=== PATIENT | male | born 1960 | race Caucasian/White ===

== ENCOUNTER 2016-03-19 09:48 | Outpatient (CLI) ==
[2013-12-02 00:55] VITALS: BMI 40.8
[2016-03-19 12:37] LABS: BASOPHILS # (AUTO) 0.1 K/uL (0-0.2); EOSINOPHILS # (AUTO) 0.2 K/ul (0.0-0.7); EOSINOPHILS % (AUTO) 3.1 % (0.0-7.0); HEMATOCRIT 49.6 % (42.0-52.0); HEMOGLOBIN 16.4 g/dl (14.0-18.0); IMMATURE GRANULOCYTE % (AUTO) 0.3 % (0.0-5.0); LYMPHOCYTES % (AUTO) 15.8 (10.0-50.0); MEAN CORPUSCULAR HEMOGLOBIN 30.8 pg (27.0-31.0); MEAN CORPUSCULAR HGB CONC 33.1 (31.8-35.4); MEAN CORPUSCULAR VOLUME 93.1 fl (80.0-94.0); MONOCYTES # (AUTO) 0.7 K/uL (0.4-2.0); MONOCYTES % (AUTO) 11.6 (0-10); NEUTROPHILS # (AUTO) 4.2 K/ul (2.0-6.9); NEUTROPHILS % (AUTO) 68.2; PLATELET COUNT 164 10^3/uL (140-440); RED BLOOD COUNT 5.33 10^6/ul (4.70-6.10); WHITE BLOOD COUNT 6.12 K/ul (4.2-10.2)
[2016-03-19 12:55] LABS: ALBUMIN 3.7 g/dL (3.4-5.0); ANION GAP 11.4; BUN/CREATININE RATIO 11.23; CALCIUM 9.2 mg/dL (8.2-10.2); CREATININE 0.89 mg/dL (0.60-1.10); PHOSPHORUS 2.4 mg/dL (2.5-4.9); POTASSIUM 4.4 mmol/L (3.5-5.1)
== END 2016-03-19 09:49 | disposition home or self-care (01) ==
LOC: LAB 09:48
PROVIDERS: ATTEND General Practice
DX: E88.81 Metabolic syndrome and other insulin resistance (principal); I10 Essential (primary) hypertension; R73.09 Other abnormal glucose; Z68.41 Body mass index [BMI] 40.0-44.9, adult
CPT/HCPCS: 36415; 80069; 83036; 83525; 85025

== ENCOUNTER 2016-08-01 10:02 | Outpatient (CLI) ==
[2013-12-02 00:55] VITALS: BMI 40.8
[2016-08-01 13:10] LABS: BILIRUBIN,URINE Negative (NEGATIVE); KETONES,URINE Negative (NEGATIVE); LEUKOCYTE ESTERASE ,URINE Negative (NEGATIVE); NITRITE,URINE Negative (NEGATIVE); PROTEIN,URINE Negative (NEGATIVE); URINE, BLOOD Negative (NEGATIVE)
[2016-08-01 13:12] LABS: BASOPHILS # (AUTO) 0.1 K/uL (0-0.2); BASOPHILS % (AUTO) 1.2 % (0.0-3.0); EOSINOPHILS # (AUTO) 0.2 K/ul (0.0-0.7); HEMATOCRIT 47.9 % (42.0-52.0); HEMOGLOBIN 16.3 g/dl (14.0-18.0); IMMATURE GRANULOCYTE % (AUTO) 0.2 % (0.0-5.0); LYMPHOCYTES # (AUTO) 1.6 K/uL (0.60-3.4); MEAN CORPUSCULAR HEMOGLOBIN 31.3 pg (27.0-31.0); MEAN CORPUSCULAR VOLUME 91.9 fl (80.0-94.0); MONOCYTES # (AUTO) 0.7 K/uL (0.4-2.0); MONOCYTES % (AUTO) 11.3 (0-10); NEUTROPHILS # (AUTO) 3.2 K/ul (2.0-6.9); NEUTROPHILS % (AUTO) 56.3; PLATELET COUNT 148 10^3/uL (140-440); RED BLOOD COUNT 5.21 10^6/ul (4.70-6.10); WHITE BLOOD COUNT 5.75 K/ul (4.2-10.2)
[2016-08-01 13:16] LABS: ADD URINE MICROSCOPIC NO
[2016-08-01 13:46] LABS: ALBUMIN 3.7 g/dL (3.4-5.0); ALBUMIN/GLOBULIN RATIO 1.16; ANION GAP 12.3; BILIRUBIN,TOTAL 0.81 mg/dL (0.00-1.20); BUN/CREATININE RATIO 11.49; CALCIUM 9.3 mg/dL (8.2-10.2); CHOL/HDL RATIO 4.4 (4.5-6.4); CREATININE 0.87 mg/dL (0.60-1.10); POTASSIUM 4.3 mmol/L (3.5-5.1); TOTAL PROTEIN 6.9 g/dL (6.4-8.2)
== END 2016-08-01 10:03 | disposition home or self-care (01) ==
LOC: LAB 10:02
PROVIDERS: ATTEND General Practice
DX: R73.09 Other abnormal glucose (principal); M54.9 Dorsalgia, unspecified; Z79.899 Other long term (current) drug therapy
CPT/HCPCS: 36415; 80053; 80061; 81001; 83036; 85025

== ENCOUNTER 2017-03-31 14:40 | Outpatient (CLI) ==
[2013-12-02 00:55] VITALS: BMI 40.8
== END 2017-03-31 14:41 | disposition home or self-care (01) ==
LOC: LAB 14:40
PROVIDERS: ATTEND General Practice
DX: R73.03 Prediabetes (principal); I10 Essential (primary) hypertension; R73.09 Other abnormal glucose; E88.81 Metabolic syndrome and other insulin resistance; F17.200 Nicotine dependence, unspecified, uncomplicated; Z79.899 Other long term (current) drug therapy
CPT/HCPCS: 36415; 80053; 80061; 81001; 83036; 83525; 85025

== ENCOUNTER 2017-12-17 10:20 | Outpatient (CLI) | payer OTHER ==
[2013-12-02 00:55] VITALS: BMI 40.8
== END 2017-12-17 10:21 | disposition home or self-care (01) ==
LOC: RHC-LAB 10:20
PROVIDERS: ATTEND General Practice
DX: E88.81 Metabolic syndrome and other insulin resistance (principal); I10 Essential (primary) hypertension; R73.03 Prediabetes; Z79.899 Other long term (current) drug therapy
CPT/HCPCS: 36415; 80053; 80061; 81001; 83036; 85025